=== PATIENT | female | born 1980 | race Caucasian/White ===

== ENCOUNTER 2017-11-07 22:49 | Emergency (ER) | payer MEDICAID ==
[~2017-11-07] VITALS: Ht 170.2 cm; Wt 100.0 kg
[~2017-11-07 22:49] MED LIST: FLUO20CA39 PO; HYDR-2514 PO; RISP1TAB47 PO
[2017-11-07 22:53] VITALS: BP 124/67
[2017-11-07] MEDS ORDERED: HYDROcodone/acetaminophen 5mg/325mg tablet PO STA (22:56)
[2017-11-07] MEDS ORDERED: TRAM50TA2 PO (23:35)
[2017-11-07] MEDS ORDERED: DICL100G15 TOP (23:35)
[2017-11-07] MEDS ORDERED: IBUP-1986 PO (23:35)
== END 2017-11-08 00:04 | disposition home or self-care (01) ==
LOC: ER 22:49
DX: M25.531 Pain in right wrist (principal); G89.29 Other chronic pain; Z88.8 Allergy status to other drugs, medicaments and biological substances; Z88.5 Allergy status to narcotic agent; Z79.899 Other long term (current) drug therapy; Z98.890 Other specified postprocedural states; W19.XXXA Unspecified fall, initial encounter; Y93.89 Activity, other specified; Y92.89 Other specified places as the place of occurrence of the external cause; Y99.8 Other external cause status
CPT/HCPCS: 29125; 73110; 99284

== ENCOUNTER 2018-04-30 21:45 | Emergency (ER) | payer MEDICAID, OTHER ==
[~2018-04-30] VITALS: Ht 170.2 cm; Wt 103.0 kg
[~2018-04-30 21:45] MED LIST changes: +DICL100G15 TOP; +HYDR-4383 PO; +IBUP-1986 PO; +NAPR-56 PO
[2018-04-30] MEDS ORDERED: dextrose ORAL solution 15 GM/59 ML bottle PO ONE (22:30)
[2018-04-30 23:17] VITALS: BP 120/71
[2018-04-30 23:30] LABS: BASOPHILS % (AUTO) 0.3 % (0-1); EOSINOPHILS # (AUTO) 0.1 X10'3 (0-0.9); EOSINOPHILS % (AUTO) 1.1 % (0-6); HEMATOCRIT 38.6 % (35.0-45.0); HEMOGLOBIN 13.1 g/dl (12.0-16.0); LYMPHOCYTES # (AUTO) 1.4 X10'3 (1.1-4.8); LYMPHOCYTES % (AUTO) 22.5 % (21-51); MEAN CORPUSCULAR HEMOGLOBIN 30.6 PG (27.0-31.0); MEAN CORPUSCULAR HGB CONC 33.9 % (33.0-36.5); MEAN CORPUSCULAR VOLUME 90.2 FL (78-98); MEAN PLATELET VOLUME 9.2 FL (7.4-10.4); MONOCYTES # (AUTO) 0.3 X10'3 (0-0.9); MONOCYTES % (AUTO) 4.3 % (2-12); NEUTROPHILS # (AUTO) 4.4 X10'3 (1.8-7.7); NEUTROPHILS % (AUTO) 71.8 % (42-75); PLATELET COUNT 176 X10'3 (140-440); RED BLOOD COUNT 4.28 X10'6 (4.20-5.60); RED CELL DISTRIBUTION WIDTH 14.4 % (11.5-14.5); WHITE BLOOD COUNT 6.2 X10'3 (4.5-11.0)
[2018-04-30 23:39] LABS: ALANINE AMINOTRANSFERASE 23 U/L (12-78); ALBUMIN 3.9 G/DL (3.4-5.0); ALBUMIN/GLOBULIN RATIO 1.2 (1.1-1.5); ALKALINE PHOSPHATASE 81 IU/L (46-116); ANION GAP 14 (8-16); ASPARTATE AMINO TRANSFERASE 12 U/L (10-37); BILIRUBIN,TOTAL 0.6 MG/DL (0.1-1.0); BLOOD UREA NITROGEN 13 MG/DL (7-18); BUN/CREATININE RATIO 13.7 (6.6-38.0); CHLORIDE 106 MMOL/L (99-107); CREATININE 0.95 MG/DL (0.40-0.90); GLUCOSE 137 MG/DL (70-104); POTASSIUM 3.2 MMOL/L (3.5-5.1); SODIUM 143 MMOL/L (135-145); TOTAL CARBON DIOXIDE 23.5 MMOL/L (24-32); TOTAL PROTEIN 7.1 G/DL (6.4-8.2); eGFR 65 ML/MIN
[2018-05-01] MEDS ORDERED: acetaminophen 325mg tablet PO ONE (00:20)
== END 2018-05-01 00:28 | disposition home or self-care (01) ==
LOC: ER 21:45
DX: E16.2 Hypoglycemia, unspecified (principal); K59.00 Constipation, unspecified; R19.7 Diarrhea, unspecified; F41.9 Anxiety disorder, unspecified; G89.29 Other chronic pain; Z90.49 Acquired absence of other specified parts of digestive tract; Z98.51 Tubal ligation status; Z88.5 Allergy status to narcotic agent; Z91.040 Latex allergy status; Z88.8 Allergy status to other drugs, medicaments and biological substances
CPT/HCPCS: 36415; 80053; 82948; 85025; 99284

== ENCOUNTER 2018-05-08 06:41 | Outpatient (CLI) | payer OTHER ==
[~2018-05-08 06:41] MED LIST changes: -NAPR-56 PO
[2018-05-08 14:05] LABS: ANION GAP 9 (8-16); BLOOD UREA NITROGEN 9 MG/DL (7-18); BUN/CREATININE RATIO 10.5 (6.6-38.0); CHLORIDE 105 MMOL/L (99-107); CREATININE 0.86 MG/DL (0.40-0.90); GLUCOSE 88 MG/DL (70-104); POTASSIUM 3.7 MMOL/L (3.5-5.1); SODIUM 141 MMOL/L (135-145); TOTAL CARBON DIOXIDE 27.5 MMOL/L (24-32); eGFR 73 ML/MIN
== END 2018-05-08 23:59 | disposition home or self-care (01) ==
LOC: LAB 06:41
PROVIDERS: ATTEND Nurse Practitioner Family
DX: R42 Dizziness and giddiness (principal); E16.2 Hypoglycemia, unspecified; F32.9 Major depressive disorder, single episode, unspecified; R41.3 Other amnesia; R25.1 Tremor, unspecified; R51 Headache; Z98.84 Bariatric surgery status
CPT/HCPCS: 36415; 80048; 82533; 83525; 84681

== ENCOUNTER 2018-05-13 15:30 | Outpatient (CLI) | payer OTHER | END 2018-05-13 23:59 | disposition home or self-care (01) | LOC: RAD 15:30 | PROVIDERS: ATTEND Nurse Practitioner Family | DX: R31.21 Asymptomatic microscopic hematuria (principal) | CPT/HCPCS: 76775 ==

== ENCOUNTER 2018-06-03 00:36 | Emergency (ER) | payer OTHER ==
[~2018-06-03] VITALS: Ht 170.2 cm; Wt 97.0 kg
[2018-06-03 01:28] LABS: BASOPHILS % (AUTO) 0.5 % (0-1); EOSINOPHILS # (AUTO) 0.1 X10'3 (0-0.9); EOSINOPHILS % (AUTO) 2.4 % (0-6); HEMATOCRIT 35.4 % (35.0-45.0); HEMOGLOBIN 12.2 g/dl (12.0-16.0); LYMPHOCYTES # (AUTO) 1.6 X10'3 (1.1-4.8); LYMPHOCYTES % (AUTO) 28.9 % (21-51); MEAN CORPUSCULAR HEMOGLOBIN 31.3 PG (27.0-31.0); MEAN CORPUSCULAR HGB CONC 34.4 % (33.0-36.5); MEAN CORPUSCULAR VOLUME 91.1 FL (78-98); MEAN PLATELET VOLUME 8.5 FL (7.4-10.4); MONOCYTES # (AUTO) 0.3 X10'3 (0-0.9); MONOCYTES % (AUTO) 4.7 % (2-12); NEUTROPHILS # (AUTO) 3.6 X10'3 (1.8-7.7); NEUTROPHILS % (AUTO) 63.5 % (42-75); PLATELET COUNT 192 X10'3 (140-440); RED BLOOD COUNT 3.89 X10'6 (4.20-5.60); RED CELL DISTRIBUTION WIDTH 14.3 % (11.5-14.5); WHITE BLOOD COUNT 5.6 X10'3 (4.5-11.0)
[2018-06-03 01:41] LABS: ALANINE AMINOTRANSFERASE 26 U/L (12-78); ALBUMIN 3.4 G/DL (3.4-5.0); ALBUMIN/GLOBULIN RATIO 1.1 (1.1-1.5); ALKALINE PHOSPHATASE 92 IU/L (46-116); ANION GAP 7 (8-16); ASPARTATE AMINO TRANSFERASE 13 U/L (10-37); BILIRUBIN,TOTAL 0.3 MG/DL (0.1-1.0); BLOOD UREA NITROGEN 13 MG/DL (7-18); BUN/CREATININE RATIO 12.7 (6.6-38.0); CALCIUM 8.8 MG/DL (8.5-10.1); CHLORIDE 106 MMOL/L (99-107); CREATININE 1.02 MG/DL (0.40-0.90); GLUCOSE 103 MG/DL (70-104); POTASSIUM 3.5 MMOL/L (3.5-5.1); SODIUM 142 MMOL/L (135-145); TOTAL CARBON DIOXIDE 29.5 MMOL/L (24-32); TOTAL PROTEIN 6.6 G/DL (6.4-8.2); eGFR 60 ML/MIN
[2018-06-03] MEDS ORDERED: NORE1TAB6 PO (01:41)
[2018-06-03 01:46] LABS: PARTIAL THROMBOPLASTIN TIME 29 SECONDS (22-32)
[2018-06-03] MEDS ORDERED: acetaminophen 325mg tablet PO ONE (01:55)
[2018-06-03 02:04] VITALS: BP 121/69
== END 2018-06-03 02:06 | disposition home or self-care (01) ==
LOC: ER 00:36
DX: N93.9 Abnormal uterine and vaginal bleeding, unspecified (principal); G89.29 Other chronic pain; F41.9 Anxiety disorder, unspecified; F17.210 Nicotine dependence, cigarettes, uncomplicated; Z98.51 Tubal ligation status; Z88.5 Allergy status to narcotic agent; Z90.49 Acquired absence of other specified parts of digestive tract; Z91.040 Latex allergy status
CPT/HCPCS: 36415; 80053; 85025; 85610; 85730; 86885; 86900; 86901; 99284

== ENCOUNTER 2018-06-08 21:09 | Emergency (ER) | payer OTHER ==
[~2018-06-08] VITALS: Ht 170.2 cm; Wt 101.0 kg
[~2018-06-08 21:09] MED LIST changes: +NORE1TAB6 PO
[2018-06-08 21:24] VITALS: BP 125/83
[2018-06-08] MEDS ORDERED: ONDA4TAB9 PO (22:12)
[2018-06-08] MEDS ORDERED: HYDR-3965 PO (22:12)
[2018-06-08] MEDS ORDERED: HYDROcodone/acetaminophen 10/325mg tab PO ONE (22:35)
[2018-06-08] MEDS ORDERED: ondansetron 4mg rapidly disintigrating tab PO ONE (22:35)
== END 2018-06-08 23:24 | disposition home or self-care (01) ==
LOC: ER 21:09
DX: S62.617A Displaced fracture of proximal phalanx of left little finger, initial encounter for closed fracture (principal); G89.29 Other chronic pain; Z88.8 Allergy status to other drugs, medicaments and biological substances; Z88.6 Allergy status to analgesic agent; Z79.899 Other long term (current) drug therapy; Z91.040 Latex allergy status; Z90.49 Acquired absence of other specified parts of digestive tract; Z98.890 Other specified postprocedural states; Z98.51 Tubal ligation status; Z98.84 Bariatric surgery status; W22.8XXA Striking against or struck by other objects, initial encounter; Y93.89 Activity, other specified; Y92.89 Other specified places as the place of occurrence of the external cause; Y99.8 Other external cause status
CPT/HCPCS: 29125; 73130; 99283

== ENCOUNTER 2018-06-13 09:21 | Emergency (ER) | payer OTHER ==
[~2018-06-13] VITALS: Ht 170.2 cm; Wt 101.6 kg
[~2018-06-13 09:21] MED LIST changes: +HYDR-3965 PO; +ONDA4TAB9 PO
[2018-06-13 09:56] VITALS: BP 124/77
[2018-06-13] MEDS ORDERED: ketorolac trometh inj. 60 MG/2 ML VIAL IM ONE (10:55)
[2018-06-13] MEDS ORDERED: HYDR-4383 PO (10:57)
== END 2018-06-13 12:11 | disposition home or self-care (01) ==
LOC: ER 09:22
DX: S62.617D Displaced fracture of proximal phalanx of left little finger, subsequent encounter for fracture with routine healing (principal); G89.29 Other chronic pain; Z90.49 Acquired absence of other specified parts of digestive tract; Z98.51 Tubal ligation status; Z91.040 Latex allergy status; Z88.5 Allergy status to narcotic agent; Z88.8 Allergy status to other drugs, medicaments and biological substances; Z79.899 Other long term (current) drug therapy; Z98.890 Other specified postprocedural states; W22.8XXD Striking against or struck by other objects, subsequent encounter
CPT/HCPCS: 29125; 96372; 99284; J1885

== ENCOUNTER 2018-06-17 09:48 | Outpatient (CLI) | payer OTHER, MEDICAID ==
[2018-06-17 09:47] VITALS: BP 128/71
== END 2018-06-17 16:13 | disposition home or self-care (01) ==
LOC: ORTHO 09:48
PROVIDERS: ATTEND Nurse Practitioner Family
DX: S62.647A Nondisplaced fracture of proximal phalanx of left little finger, initial encounter for closed fracture (principal); F17.210 Nicotine dependence, cigarettes, uncomplicated; Z91.040 Latex allergy status; Z91.048 Other nonmedicinal substance allergy status; Z88.5 Allergy status to narcotic agent; Z88.3 Allergy status to other anti-infective agents; W22.8XXA Striking against or struck by other objects, initial encounter; Y93.89 Activity, other specified; Y92.89 Other specified places as the place of occurrence of the external cause; Y99.8 Other external cause status
CPT/HCPCS: 73130; 99213

== ENCOUNTER 2018-06-23 14:23 | Outpatient (CLI) | payer OTHER, MEDICAID ==
[2018-06-23 14:22] VITALS: BP 119/72
== END 2018-06-23 15:00 | disposition home or self-care (01) ==
LOC: ORTHO 14:23
PROVIDERS: ATTEND Nurse Practitioner Family
DX: S62.647D Nondisplaced fracture of proximal phalanx of left little finger, subsequent encounter for fracture with routine healing (principal); F32.9 Major depressive disorder, single episode, unspecified; Z60.2 Problems related to living alone; Z91.040 Latex allergy status; Z88.5 Allergy status to narcotic agent; Z79.899 Other long term (current) drug therapy; Z88.3 Allergy status to other anti-infective agents; W22.8XXD Striking against or struck by other objects, subsequent encounter
CPT/HCPCS: 73130; 99213

== ENCOUNTER 2018-07-09 10:22 | Outpatient (CLI) | payer OTHER, MEDICAID ==
[2018-07-09 10:27] VITALS: BP 116/69
== END 2018-07-09 10:58 | disposition home or self-care (01) ==
LOC: ORTHO 10:22
PROVIDERS: ATTEND Nurse Practitioner Family
DX: S62.647 Nondisplaced fracture of proximal phalanx of left little finger (principal); F32.9 Major depressive disorder, single episode, unspecified; Z60.2 Problems related to living alone; Z91.040 Latex allergy status; Z88.5 Allergy status to narcotic agent; Z88.8 Allergy status to other drugs, medicaments and biological substances; Z79.899 Other long term (current) drug therapy; X58.XXXD Exposure to other specified factors, subsequent encounter
CPT/HCPCS: 73130; 99213

== ENCOUNTER 2018-07-23 10:06 | Outpatient (CLI) | payer OTHER ==
[~2018-07-23 10:06] MED LIST changes: -HYDR-3965 PO; -ONDA4TAB9 PO
[2018-07-23 10:26] VITALS: BP 113/72
== END 2018-07-23 11:03 | disposition home or self-care (01) ==
LOC: ORTHO 10:06
PROVIDERS: ATTEND Nurse Practitioner Family
DX: S62.647G Nondisplaced fracture of proximal phalanx of left little finger, subsequent encounter for fracture with delayed healing (principal); F32.9 Major depressive disorder, single episode, unspecified; Z60.2 Problems related to living alone; Z91.040 Latex allergy status; Z88.5 Allergy status to narcotic agent; Z88.8 Allergy status to other drugs, medicaments and biological substances; Z79.899 Other long term (current) drug therapy; X58.XXXD Exposure to other specified factors, subsequent encounter
CPT/HCPCS: 73140; 99213

== ENCOUNTER 2018-08-06 10:05 | Outpatient (CLI) | payer OTHER ==
[2018-08-06 10:01] VITALS: BP 127/69
== END 2018-08-06 11:29 | disposition home or self-care (01) ==
LOC: ORTHO 10:05
PROVIDERS: ATTEND Nurse Practitioner Family
DX: S62.647G Nondisplaced fracture of proximal phalanx of left little finger, subsequent encounter for fracture with delayed healing (principal); W31.89XD Contact with other specified machinery, subsequent encounter; Y92.014 Private driveway to single-family (private) house as the place of occurrence of the external cause
CPT/HCPCS: 73130; 99213

== ENCOUNTER 2018-08-20 09:10 | Outpatient (CLI) | payer OTHER ==
[2018-08-20 09:06] VITALS: BP 117/70
== END 2018-08-20 09:55 | disposition home or self-care (01) ==
LOC: ORTHO 09:10
PROVIDERS: ATTEND Nurse Practitioner Family
DX: S62.647 Nondisplaced fracture of proximal phalanx of left little finger (principal); Z91.040 Latex allergy status; Z88.5 Allergy status to narcotic agent; Z91.048 Other nonmedicinal substance allergy status; W31.89XD Contact with other specified machinery, subsequent encounter; Y92.014 Private driveway to single-family (private) house as the place of occurrence of the external cause
CPT/HCPCS: 73130; G0463; 99213

== ENCOUNTER 2018-09-29 09:03 | Outpatient (CLI) | payer OTHER ==
[2018-09-29 08:56] VITALS: BP 114/70
== END 2018-09-29 09:51 | disposition home or self-care (01) ==
LOC: ORTHO 09:03
PROVIDERS: ATTEND Nurse Practitioner Family
DX: S62.647G Nondisplaced fracture of proximal phalanx of left little finger, subsequent encounter for fracture with delayed healing (principal); X58.XXXD Exposure to other specified factors, subsequent encounter
CPT/HCPCS: 73130; 99213

== ENCOUNTER 2018-10-21 14:58 | Outpatient (CLI) | payer OTHER | END 2018-10-21 15:42 | disposition home or self-care (01) | LOC: ORTHO 14:58 | PROVIDERS: ATTEND Orthopaedic Surgery | DX: S62.617D Displaced fracture of proximal phalanx of left little finger, subsequent encounter for fracture with routine healing (principal); M85.842 Other specified disorders of bone density and structure, left hand; Z91.040 Latex allergy status; Z88.5 Allergy status to narcotic agent; Z88.8 Allergy status to other drugs, medicaments and biological substances; X58.XXXD Exposure to other specified factors, subsequent encounter | CPT/HCPCS: 73130; 99213 ==

== ENCOUNTER 2018-12-03 08:26 | Outpatient (CLI) | payer OTHER ==
[2018-12-03 12:55] VITALS: BP 124/71
== END 2018-12-03 12:59 | disposition home or self-care (01) ==
LOC: ORTHO 08:26
PROVIDERS: ATTEND Orthopaedic Surgery
DX: S62.647D Nondisplaced fracture of proximal phalanx of left little finger, subsequent encounter for fracture with routine healing (principal); X58.XXXD Exposure to other specified factors, subsequent encounter
CPT/HCPCS: 73140; 99213

== ENCOUNTER 2018-12-24 11:19 | Outpatient (CLI) | payer OTHER | END 2018-12-24 11:49 | disposition home or self-care (01) | LOC: ORTHO 11:19 | PROVIDERS: ATTEND Orthopaedic Surgery | DX: S62.617D Displaced fracture of proximal phalanx of left little finger, subsequent encounter for fracture with routine healing (principal); X58.XXXD Exposure to other specified factors, subsequent encounter | CPT/HCPCS: 73130; G0463 ==

== ENCOUNTER 2019-01-26 14:42 | Outpatient (CLI) | payer OTHER ==
[2019-01-26 14:41] VITALS: BP 96/53
== END 2019-01-26 15:35 | disposition home or self-care (01) ==
LOC: ORTHO 14:42
PROVIDERS: ATTEND Orthopaedic Surgery
DX: S62.617D Displaced fracture of proximal phalanx of left little finger, subsequent encounter for fracture with routine healing (principal); X58.XXXD Exposure to other specified factors, subsequent encounter
CPT/HCPCS: 73130; G0463

== ENCOUNTER 2019-02-04 15:39 | Outpatient (CLI) | payer OTHER ==
[~2019-02-04 15:39] MED LIST changes: +NORE-126 PO; -NORE1TAB6 PO
== END 2019-02-04 23:59 | disposition home or self-care (01) ==
LOC: RAD 15:39
PROVIDERS: ATTEND Obstetrics & Gynecology
DX: N83.02 Follicular cyst of left ovary (principal); N83.01 Follicular cyst of right ovary; Z87.891 Personal history of nicotine dependence
CPT/HCPCS: 76830; 76856

== ENCOUNTER 2019-02-18 07:15 | Observation (INO) | payer OTHER ==
[2019-02-17 10:40] LABS: CLARITY,URINE SLIGHTLY CLOUDY (Clear); COLOR,URINE YELLOW (Yellow); GLUCOSE, URINE NEGATIVE (Neg); KETONES,URINE NEGATIVE (Neg); LEUKOCYTE ESTERASE ,URINE NEGATIVE (Neg); NITRITES, URINE NEGATIVE (Neg); OCCULT BLOOD,URINE TRACE-INTACT (Neg); PH,URINE 6.5 (4.8-8.0); PROTEIN,URINE NEGATIVE (Neg); UROBILINOGEN,URINE 0.2 E.U/dL (0.2-1.0)
[2019-02-17 10:50] LABS: MUCUS STRANDS FEW /LPF (Neg); SQUAMOUS EPITHELIAL CELL,UR FEW /LPF (FEW); UA COLLECTION TYPE CLN CATCH MIDSTREAM
[2019-02-17 10:51] LABS: BACTERIA,URINE FEW /HPF (Neg); RBC,URINE 0-2 /HPF (0-2); WBC,URINE 0-4 /HPF (0-4)
[2019-02-17 10:52] LABS: BASOPHILS % (AUTO) 0.6 % (0-1); EOSINOPHILS # (AUTO) 0.1 X10'3 (0-0.9); EOSINOPHILS % (AUTO) 2.3 % (0-6); LYMPHOCYTES # (AUTO) 1.5 X10'3 (1.1-4.8); LYMPHOCYTES % (AUTO) 23.6 % (21-51); MEAN CORPUSCULAR HGB CONC 32.7 g/dL (33.0-36.5); MEAN CORPUSCULAR VOLUME 88.8 FL (78-98); MEAN PLATELET VOLUME 8.9 FL (7.4-10.4); MONOCYTES # (AUTO) 0.4 X10'3 (0-0.9); MONOCYTES % (AUTO) 6.3 % (2-12); NEUTROPHILS # (AUTO) 4.1 X10'3 (1.8-7.7); NEUTROPHILS % (AUTO) 67.2 % (42-75); PRE OP HEMATOCRIT 35.2 % (35.0-45.0); PRE OP HEMOGLOBIN 11.5 g/dL (12.0-16.0); PRE OP PLATELET COUNT 207 X10'3 (140-440); RED BLOOD COUNT 3.97 X10'6 (4.20-5.60)
[2019-02-17 10:55] LABS: ALBUMIN 3.5 G/DL (3.4-5.0); ALKALINE PHOSPHATASE 86 IU/L (46-116); BLOOD UREA NITROGEN 13 MG/DL (7-18); BUN/CREATININE RATIO 14.9 (6.6-38.0); CALCIUM 9.4 MG/DL (8.5-10.1); CHLORIDE 109 MMOL/L (99-107); CREATININE 0.87 MG/DL (0.40-0.90); PRE OP ALT 21 U/L (30-65); PRE OP ANION GAP 8 (8-16); PRE OP AST 10 U/L (10-37); PRE OP BILIRUB, TOTAL 0.3 MG/DL (0.0-1.0); PRE OP GLUCOSE 91 MG/DL (70-104); PRE OP SODIUM 144 MMOL/L (135-145); TOTAL CARBON DIOXIDE 27.2 MMOL/L (24-32); TOTAL PROTEIN 7.1 G/DL (6.4-8.2); eGFR 72 ML/MIN
[2019-02-17 10:56] LABS: PRE OP PROTIME 9.8 SECONDS (9.0-12.0)
[~2019-02-18] VITALS: Ht 170.2 cm; Wt 104.8 kg
[2019-02-18] VITALS (21 sets, daily range): BP systolic 94–124; BP diastolic 53–79
[~2019-02-18 07:15] MED LIST changes: +BUPIVAcaine/PF 2.5 mg/ml (0.25%) 30ml vial ONE; +CHOL100024 PO; +CYAN500T63 PO; -DICL100G15 TOP; +FERR325T34 PO; -FLUO20CA39 PO; -HYDR-2514 PO; -HYDR-4383 PO; -IBUP-1986 PO; +LORA-269 PO; -NORE-126 PO; +PRAM0.754 PO; -RISP1TAB47 PO; +SERT100T10 PO; +TRAZ-219 PO; +[UNRECOGNIZED DRUG - CODE] PO; +famotidine 20mg tablet PO ONE; +tranexamic acid inj. 1,000 MG in normal saline 100 ML IV ONE
[2019-02-18] MEDS: ringers solution, lacted 1,000 ML IV SCH ×3 (07:34→17:31)
[2019-02-18] MEDS ORDERED: rocuronium 10mg/ml inj IV ONE ×2 (08:18→10:08)
[2019-02-18] MEDS ORDERED: midazolam 2 mg/2 ml injection ONE (08:18)
[2019-02-18] MEDS ORDERED: propofol inj 20 ML IV ONE (08:18)
[2019-02-18] MEDS ORDERED: fentaNYL /PF 50mcg/ml 5ml ampule ONE (08:18)
[2019-02-18] MEDS ORDERED: sevoflurane 250ml liquid IH ONE (08:28)
[2019-02-18] MEDS ORDERED: ringers solution, lacted 1,000 ML IV SCH (09:38)
[2019-02-18] MEDS ORDERED: proCHLORperazine 10 MG/2 ml inj IV PRN (09:40)
[2019-02-18] MEDS ORDERED: meperidine/PF 25mg/ml syringe IV PRN ×2 (09:40)
[2019-02-18] MEDS ORDERED: morphine 4 MG/ML inj SYRINge IV PRN ×2 (09:40)
[2019-02-18] MEDS ORDERED: ondansetron/PF 4mg/2ml inj IV PRN ×2 (09:40→13:15)
[2019-02-18] MEDS ORDERED: dexamethasone sod phosphate 4mg/ml inj. ONE (10:08)
[2019-02-18] MEDS ORDERED: ondansetron/PF 4mg/2ml inj ONE (12:01)
[2019-02-18] MEDS ORDERED: acetaminophen 1,000mg/100ml IV 100 ML IV ONE (12:02)
[2019-02-18] MEDS ORDERED: BUPIVAcaine/PF 2.5mg/ml (0.25%) 10ml vial ONE (12:18)
[2019-02-18] MEDS ORDERED: neostigmine methylsulfate 1 MG/ML 10ml vial ONE (12:22)
[2019-02-18] MEDS ORDERED: glycopyrrolate 0.2mg/ml inj ONE (12:22)
--- NOTE | 2019-02-18 12:44 | NUR ---
Received from OR via , accompanied by Anesthesiologist DR BROTHERS and report given by Anesthesiolgist. AWAKENS TO VOICE. VITALS STABLE. DRESSINGS DI. STATES MODRATE ABD CRAMPING. ABD SOFT.
[2019-02-18] MEDS: meperidine/PF 25mg/ml syringe IV PRN ×2 (12:51→13:01)
[2019-02-18] MEDS ORDERED: ketorolac trometh. 30mg/ml inj. IV ONE (13:05)
[2019-02-18] MEDS ORDERED: diphenhydrAMINE 50 mg/ml inj IV PRN (13:15)
[2019-02-18] MEDS ORDERED: LORazepam 2 mg/ml vial IV PRN (13:15)
[2019-02-18] MEDS ORDERED: magnesium hydroxide 30ml (MOM) UD suspension PO PRN (13:15)
[2019-02-18] MEDS ORDERED: mag hydrox/Alum hydrox/simeth 30ml oral suspension PO PRN (13:15)
[2019-02-18] MEDS ORDERED: normal saline 500ml IV soln 500 ML IV PRN (13:15)
[2019-02-18] MEDS ORDERED: metoclopramide 5 mg/ml inj IV PRN (13:15)
--- NOTE | 2019-02-18 14:44 | NUR ---
Report called to receiving nurse. Transferred via BED Belongings . Special Issues communicated to receiving nurse. AWAKE AND ORIENTED. VITALS STABLE. DRESSINGS DI. STATES PAIN IMPROVING. TO SURGICAL RM 347A AT THIS TIME.
[2019-02-18] MEDS: ibuprofen 200mg tablet PO SCH ×2 (16:09→20:00)
[2019-02-18] MEDS: HYDROcodone/acetaminophen 10/325mg tab PO PRN ×2 (17:25→23:11)
[2019-02-18] MEDS: simethicone 80mg chew tab PO SCH (17:31)
--- NOTE | 2019-02-18 18:15 | NUR ---
Patient in room [facility]. I have received report from ALYSSIA Briceño and had the opportunity to ask questions and assume patient care. Addendum: 02/18/19 at 2305 by Sohan Miner RN Amended: Links added.
--- NOTE | 2019-02-18 18:18 | NUR ---
Problems reprioritized. Patient report given, questions answered & plan of care reviewed with SASKIA Valentine RN. Addendum: 02/18/19 at 1820 by Pam Wilson RN DISREGARD NOTE
--- NOTE | 2019-02-18 18:20 | NUR ---
Problems reprioritized. Patient report given, questions answered & plan of care reviewed with MARITA CADE.
[2019-02-18] MEDS: ketorolac tromethamine 15mg/ml inj. IV PRN (19:46)
[2019-02-18] MEDS ORDERED: LORazepam 1 MG tablet PO PRN (21:05)
[2019-02-18] MEDS: morphine 4 MG/ML inj SYRINge IV PRN (21:38)
[2019-02-18] MEDS: pramipexole 0.25mg tablet PO SCH (23:09)
[2019-02-18] MEDS: traZODone 50mg tablet PO SCH (23:10)
[2019-02-19] VITALS: BP 114/62
--- NOTE | 2019-02-19 00:40 | NUR ---
PT VOIDED IN BSC, POST VOID RESIDUAL 400ML PER BLADDER SCAN. PT WAS VOIDING WITHOUT DIFFICULTY, BUT STATES STARTED TO FEEL MO9RE PRESSURE LAST FEW HOURS. SINGER CATH 16FR PLACED PER ORDERS. PT INSTRUCTED ON CARE, BUT DROWSY AT THIS TIME, WILL NEED F/U EDUCATION. Addendum: 02/19/19 at 0057 by Sohan Miner RN Amended: Links added.
[2019-02-19] MEDS: ibuprofen 200mg tablet PO SCH ×4 (02:00→19:05)
[2019-02-19] MEDS: ketorolac tromethamine 15mg/ml inj. IV PRN (03:04)
[2019-02-19] MEDS: morphine 4 MG/ML inj SYRINge IV PRN ×2 (03:49→10:43)
[2019-02-19] MEDS: HYDROcodone/acetaminophen 10/325mg tab PO PRN ×4 (04:18→21:35)
[2019-02-19 05:16] LABS: BASOPHILS % (AUTO) 0.2 % (0-1); EOSINOPHILS % (AUTO) 0.1 % (0-6); HEMATOCRIT 31.8 % (35.0-45.0); HEMOGLOBIN 10.5 g/dl (12.0-16.0); LYMPHOCYTES # (AUTO) 0.9 X10'3 (1.1-4.8); LYMPHOCYTES % (AUTO) 8.8 % (21-51); MEAN CORPUSCULAR HEMOGLOBIN 29.4 PG (27.0-31.0); MEAN CORPUSCULAR HGB CONC 33.1 g/dL (33.0-36.5); MEAN CORPUSCULAR VOLUME 88.9 FL (78-98); MEAN PLATELET VOLUME 9.1 FL (7.4-10.4); MONOCYTES # (AUTO) 0.6 X10'3 (0-0.9); MONOCYTES % (AUTO) 5.2 % (2-12); NEUTROPHILS # (AUTO) 9.1 X10'3 (1.8-7.7); NEUTROPHILS % (AUTO) 85.7 % (42-75); PLATELET COUNT 172 X10'3 (140-440); RED BLOOD COUNT 3.57 X10'6 (4.20-5.60); WHITE BLOOD COUNT 10.6 X10'3 (4.5-11.0)
[2019-02-19] MEDS ORDERED: cefazolin/dext.iso 2gm/100 ML IV ONE (05:30)
[2019-02-19 05:31] LABS: ALANINE AMINOTRANSFERASE 17 U/L (12-78); ALKALINE PHOSPHATASE 70 IU/L (46-116); ANION GAP 9 (8-16); ASPARTATE AMINO TRANSFERASE 11 U/L (10-37); BILIRUBIN,TOTAL 0.3 MG/DL (0.1-1.0); BLOOD UREA NITROGEN 8 MG/DL (7-18); BUN/CREATININE RATIO 8.5 (6.6-38.0); CALCIUM 8.7 MG/DL (8.5-10.1); CHLORIDE 108 MMOL/L (99-107); CREATININE 0.94 MG/DL (0.40-0.90); GLUCOSE 110 MG/DL (70-104); POTASSIUM 4.1 MMOL/L (3.5-5.1); SODIUM 142 MMOL/L (135-145); TOTAL CARBON DIOXIDE 24.9 MMOL/L (24-32); TOTAL PROTEIN 6.1 G/DL (6.4-8.2); eGFR 66 ML/MIN
--- NOTE | 2019-02-19 06:29 | NUR ---
Patient in room [facility]. I have received report from ALYSSIA Cartagena and had the opportunity to ask questions and assume patient care.
--- NOTE | 2019-02-19 06:35 | NUR ---
Problems reprioritized. Patient report given, questions answered & plan of care reviewed with ALYSSIA Murillo. Addendum: 02/19/19 at 0636 by Sohan Miner RN Amended: Links added.
[2019-02-19 07:00] VITALS: BP 98/44
[2019-02-19] MEDS: ferrous sulfate 325mg tablet PO SCH ×2 (08:44→19:05)
[2019-02-19] MEDS: cyanocobalamin 500mcg tablet PO SCH (08:45)
[2019-02-19] MEDS: simethicone 80mg chew tab PO SCH ×3 (08:45→17:03)
[2019-02-19] MEDS: sertraline 50mg tablet PO SCH (08:46)
[2019-02-19] MEDS: vitamin D (cholecalciferol) 1,000 unit tablet PO SCH (08:46)
[2019-02-19] MEDS: ascorbic acid 500mg tablet PO SCH (10:43)
[2019-02-19 11:00] VITALS: BP 99/46
[2019-02-19] MEDS ORDERED: oxyCODONE SR 10mg (sust. release) tab PO PRN (14:20)
[2019-02-19 18:00] VITALS: BP 97/52
--- NOTE | 2019-02-19 18:30 | NUR ---
Patient in room [facility]. I have received report from Lidia CADE and had the opportunity to ask questions and assume patient care.
--- NOTE | 2019-02-19 18:45 | NUR ---
Problems reprioritized. Patient report given, questions answered & plan of care reviewed with ALYSSIA Moseley.
[2019-02-19] MEDS: oxyCODONE SR 10mg (sust. release) tab PO SCH (19:06)
[2019-02-19] MEDS: pramipexole 0.25mg tablet PO SCH (21:33)
[2019-02-19] MEDS: traZODone 50mg tablet PO SCH (21:33)
[2019-02-20] VITALS: BP 97/51
--- NOTE | 2019-02-20 00:06 | NUR ---
Problems reprioritized. Patient report given, questions answered & plan of care reviewed with Deneen CADE.
[2019-02-20] MEDS: ibuprofen 200mg tablet PO SCH ×2 (02:00→07:52)
[2019-02-20] MEDS: HYDROcodone/acetaminophen 10/325mg tab PO PRN (04:53)
--- NOTE | 2019-02-20 06:09 | NUR ---
Problems reprioritized. Patient report given, questions answered & plan of care reviewed with Lidia CADE. Addendum: 02/20/19 at 0610 by Deneen Giraldo RN Amended: Links added.
--- NOTE | 2019-02-20 06:24 | NUR ---
Patient in room [facility]. I have received report from ALYSSIA Brothers and had the opportunity to ask questions and assume patient care.
[2019-02-20 07:00] VITALS: BP 116/41
[2019-02-20] MEDS: cyanocobalamin 500mcg tablet PO SCH (08:25)
[2019-02-20] MEDS: sertraline 50mg tablet PO SCH (08:25)
[2019-02-20] MEDS: ascorbic acid 500mg tablet PO SCH (08:25)
[2019-02-20] MEDS: oxyCODONE SR 10mg (sust. release) tab PO SCH (08:26)
[2019-02-20] MEDS: simethicone 80mg chew tab PO SCH (08:26)
[2019-02-20] MEDS: ferrous sulfate 325mg tablet PO SCH (08:26)
[2019-02-20] MEDS: vitamin D (cholecalciferol) 1,000 unit tablet PO SCH (08:26)
[2019-02-20 11:00] VITALS: BP 111/49
--- NOTE | 2019-02-20 12:33 | NUR ---
Patient discharged and taken from unit via wheelchair with x1 staff. Patient alert, oriented and in no apparent distress at time of discharge. Patient PIV removed with cannula intact. Patient took all belongings with her including discharge instructions. Patient stated an understanding of the instructions and states that she will follow up with Dr. Wong in 1-2 weeks. Patient stated that her ear was a little numb and having a weird hearing issue. Dr. Wong was called regarding this issue and said that this is something she can address during their follow up appointment. Patient agreed and felt comfortable for discharge.
== END 2019-02-20 12:30 | disposition home or self-care (01) ==
LOC: PAS 07:15 → SUR 3N 13:12
PROVIDERS: ADMIT Obstetrics & Gynecology; ATTEND Obstetrics & Gynecology
PROC: 0UT24ZZ Resection of Bilateral Ovaries, Percutaneous Endoscopic Approach (ICD-10-PCS; 2019-02-18)
PROC: 0UT74ZZ Resection of Bilateral Fallopian Tubes, Percutaneous Endoscopic Approach (ICD-10-PCS; 2019-02-18)
PROC: 8E0W4CZ Robotic Assisted Procedure of Trunk Region, Percutaneous Endoscopic Approach (ICD-10-PCS; 2019-02-18)
PROC: 0UBMXZZ Excision of Vulva, External Approach (ICD-10-PCS; 2019-02-18)
PROC: 0T9B00Z Drainage of Bladder with Drainage Device, Open Approach (ICD-10-PCS; 2019-02-18)
PROC: 0DNU4ZZ Release Omentum, Percutaneous Endoscopic Approach (ICD-10-PCS; 2019-02-18)
PROC: 0UT94ZZ Resection of Uterus, Percutaneous Endoscopic Approach (ICD-10-PCS; principal; 2019-02-18 08:26)
DX: N92.1 Excessive and frequent menstruation with irregular cycle (principal); N90.60 Unspecified hypertrophy of vulva; Z80.41 Family history of malignant neoplasm of ovary; R10.2 Pelvic and perineal pain; D64.9 Anemia, unspecified; Z01.812 Encounter for preprocedural laboratory examination; Z83.3 Family history of diabetes mellitus
CPT/HCPCS: 36415; 49329; 51040; 56620; 58571; 80053; 81001; 82948; 85025; 85610; 85730; 86885; 86900; 86901; 86920; 93005; 96374; 96375; 96376; C1758; G0378; J0131; J1100; J1885; J2060; J2175; J2250; J2270; J2405; J2704; J2710; J3010; J3490; J7030; J7120; S2900; A4355; A4618; A7000

== ENCOUNTER 2019-03-26 08:15 | Outpatient (CLI) | payer OTHER, MEDICAID ==
[~2019-03-26 08:15] MED LIST changes: -BUPIVAcaine/PF 2.5 mg/ml (0.25%) 30ml vial ONE; -famotidine 20mg tablet PO ONE; -tranexamic acid inj. 1,000 MG in normal saline 100 ML IV ONE
== END 2019-03-26 23:59 | disposition home or self-care (01) ==
LOC: VAS 08:15
PROVIDERS: ATTEND Family Medicine
DX: I65.23 Occlusion and stenosis of bilateral carotid arteries (principal); Z87.891 Personal history of nicotine dependence
CPT/HCPCS: 93880

== ENCOUNTER 2019-03-30 19:05 | Emergency (ER) | payer OTHER, MEDICAID ==
--- NOTE | 2019-03-30 23:20 | NUR ---
PT MOVED FROM FAST TRACK OVER TO ROOM [address] GIRON THAT PT HAS BEEN WAITING AND WOULD LIKE TO BE SEEN . SHE IS AN EMPLOYEE
--- NOTE | 2019-03-30 23:58 | NUR ---
PT FRUSTRATED THAT SHE STILL HASNT BEEN SEEN . ENCOURAGED PT TO BE PATIENT TO AWAIT MD .
--- NOTE | 2019-03-31 00:46 | NUR ---
PT SEEN BY DR IGRON AT BEDSIDE TO DO AN EXTERNAL VAGINAL EXAM. PT ADVISED THAT ALL SUTURES INTACT . POC UPDATED . PT TO APPLY GUAZE AND KOTEX TO AREA AND ICE NEEDED
[2019-03-31] MEDS ORDERED: acetaminophen 325mg tablet PO ONE (01:00)
[2019-03-31 01:14] VITALS: BP 115/69
== END 2019-03-31 01:17 | disposition home or self-care (01) ==
LOC: ER 19:06
DX: T81.89XA Other complications of procedures, not elsewhere classified, initial encounter (principal); N99.821 Postprocedural hemorrhage of a genitourinary system organ or structure following other procedure; G89.29 Other chronic pain; F41.9 Anxiety disorder, unspecified; F32.9 Major depressive disorder, single episode, unspecified; Z90.49 Acquired absence of other specified parts of digestive tract; Z98.51 Tubal ligation status; Z98.890 Other specified postprocedural states; Z91.040 Latex allergy status; Z88.5 Allergy status to narcotic agent; Z79.899 Other long term (current) drug therapy; Y84.8 Other medical procedures as the cause of abnormal reaction of the patient, or of later complication, without mention of misadventure at the time of the procedure; Y92.89 Other specified places as the place of occurrence of the external cause
CPT/HCPCS: 99283

== ENCOUNTER 2019-04-02 08:40 | Outpatient (CLI) | payer OTHER, MEDICAID | END 2019-04-02 23:59 | disposition home or self-care (01) | LOC: RAD 08:40 | PROVIDERS: ATTEND Family Medicine | DX: M51.36 Other intervertebral disc degeneration, lumbar region (principal); M25.78 Osteophyte, vertebrae; Z87.891 Personal history of nicotine dependence | CPT/HCPCS: 72100; 72148 ==

== ENCOUNTER 2019-04-13 12:09 | Outpatient (CLI) | payer OTHER, MEDICAID | END 2019-04-13 23:59 | disposition home or self-care (01) | LOC: CARD DIAG 12:09 | PROVIDERS: ATTEND Internal Medicine Cardiovascular Disease | DX: R55 Syncope and collapse (principal); M25.571 Pain in right ankle and joints of right foot | CPT/HCPCS: 73610; 93306 ==

== ENCOUNTER 2019-04-14 08:48 | Outpatient (CLI) | payer OTHER, MEDICAID | END 2019-04-14 23:59 | disposition home or self-care (01) | LOC: VAS 08:48 | PROVIDERS: ATTEND Obstetrics & Gynecology | DX: M79.604 Pain in right leg (principal); Z87.891 Personal history of nicotine dependence | CPT/HCPCS: 93970 ==

== ENCOUNTER 2019-04-29 08:00 | Outpatient (CLI) | payer OTHER, MEDICAID ==
[2019-04-29] VITALS (21 sets, daily range): BP systolic 100–125; BP diastolic 58–80
== END 2019-04-29 23:59 | disposition home or self-care (01) ==
LOC: CARD DIAG 08:00
PROVIDERS: ATTEND Internal Medicine Cardiovascular Disease
DX: R42 Dizziness and giddiness (principal)
CPT/HCPCS: 93660

== ENCOUNTER 2019-05-05 07:59 | Emergency (ER) | payer OTHER, MEDICAID ==
[~2019-05-05] VITALS: Ht 170.2 cm; Wt 104.5 kg
[2019-05-05] MEDS ORDERED: acetaminophen 325mg tablet PO ONE (08:50)
[2019-05-05] MEDS ORDERED: TETanus/Pertussis (Acell)/Diphther VAC/PF (Tdap-Adult) 0.5ml syringe IM ONE (08:50)
[2019-05-05 09:10] VITALS: BP 121/71
== END 2019-05-05 09:12 | disposition home or self-care (01) ==
LOC: ER 08:00
DX: S60.041A Contusion of right ring finger without damage to nail, initial encounter (principal); G89.29 Other chronic pain; F41.9 Anxiety disorder, unspecified; F32.9 Major depressive disorder, single episode, unspecified; Z90.49 Acquired absence of other specified parts of digestive tract; Z98.890 Other specified postprocedural states; Z98.51 Tubal ligation status; Z91.040 Latex allergy status; Z88.5 Allergy status to narcotic agent; Z88.8 Allergy status to other drugs, medicaments and biological substances; Z79.899 Other long term (current) drug therapy; W22.8XXA Striking against or struck by other objects, initial encounter; Y93.89 Activity, other specified; Y92.89 Other specified places as the place of occurrence of the external cause; Y99.8 Other external cause status
CPT/HCPCS: 11740; 29280; 73140; 90471; 99283

== ENCOUNTER 2019-05-25 06:18 | Day surgery (SDC) | payer OTHER, MEDICAID ==
[~2019-05-25] VITALS: Ht 170.2 cm; Wt 100.0 kg
[2019-05-25 06:25] VITALS: BP 127/90
[2019-05-25] MEDS ORDERED: ESTR1PAT32 TD (06:39)
[2019-05-25] MEDS ORDERED: SERT50TA10 PO (06:40)
[2019-05-25] MEDS ORDERED: MIDAZolam 5mg/5ml vial ONE (07:07)
[2019-05-25] MEDS ORDERED: fentaNYL/PF 50MCG/1 ML 2ML syringe ONE ×2 (07:07→08:15)
[2019-05-25] MEDS ORDERED: LIDOcaine Viscous 15ml cup ONE (07:49)
[2019-05-25 08:45] VITALS: BP 107/70
[2019-05-25 08:55] VITALS: BP 111/69
[2019-05-25 09:05] VITALS: BP 107/59
[2019-05-25 09:15] VITALS: BP 106/67
== END 2019-05-25 09:45 | disposition home or self-care (01) ==
LOC: GI LAB 06:18
PROVIDERS: ATTEND Internal Medicine Gastroenterology
DX: K52.9 Noninfective gastroenteritis and colitis, unspecified (principal); R10.84 Generalized abdominal pain; Z90.3 Acquired absence of stomach [part of]
CPT/HCPCS: 43239; 45380; 99152; 99153; J2250; J3010; J7040; A4620

== ENCOUNTER 2019-07-05 08:37 | Day surgery (SDC) | payer OTHER, MEDICAID ==
[2019-07-01 11:02] LABS: BASOPHILS % (AUTO) 0.3 % (0-1); EOSINOPHILS # (AUTO) 0.1 X10'3 (0-0.9); EOSINOPHILS % (AUTO) 1.4 % (0-6); LYMPHOCYTES # (AUTO) 1.5 X10'3 (1.1-4.8); LYMPHOCYTES % (AUTO) 18.5 % (21-51); MEAN CORPUSCULAR HEMOGLOBIN 29.8 PG (27.0-31.0); MEAN CORPUSCULAR HGB CONC 33.4 g/dL (33.0-36.5); MEAN CORPUSCULAR VOLUME 89.3 FL (78-98); MEAN PLATELET VOLUME 8.2 FL (7.4-10.4); MONOCYTES # (AUTO) 0.4 X10'3 (0-0.9); MONOCYTES % (AUTO) 4.9 % (2-12); NEUTROPHILS # (AUTO) 6.2 X10'3 (1.8-7.7); NEUTROPHILS % (AUTO) 74.9 % (42-75); PRE OP HEMATOCRIT 39.9 % (35.0-45.0); PRE OP HEMOGLOBIN 13.3 g/dL (12.0-16.0); PRE OP PLATELET COUNT 201 X10'3 (140-440); RED BLOOD COUNT 4.47 X10'6 (4.20-5.60); RED CELL DISTRIBUTION WIDTH 16.2 % (11.5-14.5)
[2019-07-01 11:11] LABS: ALBUMIN/GLOBULIN RATIO 1.1 (1.1-1.5); ALKALINE PHOSPHATASE 108 IU/L (46-116); BLOOD UREA NITROGEN 10 MG/DL (7-18); BUN/CREATININE RATIO 11.1 (6.6-38.0); CALCIUM 9.4 MG/DL (8.5-10.1); CHLORIDE 105 MMOL/L (99-107); PRE OP ALT 17 U/L (30-65); PRE OP ANION GAP 9 (8-16); PRE OP AST 11 U/L (10-37); PRE OP BILIRUB, TOTAL 0.2 MG/DL (0.0-1.0); PRE OP GLUCOSE 93 MG/DL (70-104); PRE OP POTASSIUM 4.3 MMOL/L (3.4-5.1); PRE OP SODIUM 143 MMOL/L (135-145); TOTAL CARBON DIOXIDE 28.9 MMOL/L (24-32); TOTAL PROTEIN 7.6 G/DL (6.4-8.2); eGFR 69 ML/MIN
[2019-07-05] VITALS (10 sets, daily range): BP systolic 97–132; BP diastolic 65–71
[~2019-07-05] VITALS: Ht 170.2 cm; Wt 97.9 kg
[~2019-07-05 08:37] MED LIST changes: +ESTR1PAT32 SQ; -FERR325T34 PO; +SERT50TA10 PO; +cefazolin/dext.iso 2gm/100ml 100 ML IV ONE; +famotidine 10mg tablet PO ONE; +ringers solution, lacted 1,000 ML IV SCH
[2019-07-05] MEDS ORDERED: BUPIVAcaine/PF 2.5mg/ml (0.25%) 10ml vial ONE (10:28)
[2019-07-05] MEDS ORDERED: LIDOcaine 0.5% (5mg/ml) 50ml vial ONE (11:09)
[2019-07-05] MEDS ORDERED: fentaNYL/PF 50MCG/1 ML 2ML syringe ONE ×2 (11:10→11:22)
[2019-07-05] MEDS ORDERED: MIDAZolam 5mg/5ml vial ONE (11:20)
[2019-07-05] MEDS ORDERED: propofol inj 20 ML IV ONE (11:39)
--- NOTE | 2019-07-05 11:45 | NUR ---
ADMITTED TO PACU FROM OR ACCOMPANIED BY ANESTHESIA. INTIAL PHYSICAL ASSESSMENT DONE AND RECORDED. REPORT RECEIVED FROM ANESTHESIA.
--- NOTE | 2019-07-05 13:00 | NUR ---
DISCHARGE CRITERIA MET, DISCHARGE INSTRUCTIONS GIVEN, DEMONSTRATES VERBAL UNDERSTANDING. DISCHARGED HOME IN GOOD CONDITION.
== END 2019-07-05 13:00 | disposition home or self-care (01) ==
LOC: PAS 08:37
PROVIDERS: ATTEND Orthopaedic Surgery Hand Surgery
DX: M20.092 Other deformity of left finger(s) (principal); M65.842 Other synovitis and tenosynovitis, left hand; Z98.51 Tubal ligation status; Z98.890 Other specified postprocedural states; Z98.84 Bariatric surgery status; Z90.49 Acquired absence of other specified parts of digestive tract; G47.33 Obstructive sleep apnea (adult) (pediatric); F43.10 Post-traumatic stress disorder, unspecified; F41.9 Anxiety disorder, unspecified; F32.9 Major depressive disorder, single episode, unspecified; E66.9 Obesity, unspecified; Z68.35 Body mass index [BMI] 35.0-35.9, adult; G25.81 Restless legs syndrome; Z91.040 Latex allergy status; Z88.5 Allergy status to narcotic agent; Z91.09 Other allergy status, other than to drugs and biological substances; Z79.899 Other long term (current) drug therapy; Z88.8 Allergy status to other drugs, medicaments and biological substances
CPT/HCPCS: 26145; 36415; 80053; 82948; 85025; J2001; J2250; J2704; J3010; J3490; A4215; A4615; A7000; J7120

== ENCOUNTER 2019-10-08 10:04 | Outpatient (CLI) | payer OTHER, MEDICAID ==
[~2019-10-08 10:04] MED LIST changes: -TRAZ-219 PO; +TRAZ-256 PO; -cefazolin/dext.iso 2gm/100ml 100 ML IV ONE; -famotidine 10mg tablet PO ONE; -ringers solution, lacted 1,000 ML IV SCH
== END 2019-10-08 23:59 | disposition home or self-care (01) ==
LOC: RAD 10:04
PROVIDERS: ATTEND Family Medicine
DX: M47.814 Spondylosis without myelopathy or radiculopathy, thoracic region (principal)
CPT/HCPCS: 72074; 72146

== ENCOUNTER 2021-02-26 13:55 | Emergency (ER) | payer MEDICAID, OTHER ==
[~2021-02-26] VITALS: Ht 170.2 cm; Wt 95.0 kg
[~2021-02-26 13:55] MED LIST changes: -CYAN500T63 PO; +CYAN500T71 PO; +SERT-433 PO; +SERT-434 PO; -SERT100T10 PO; -SERT50TA10 PO
[2021-02-26 14:36] VITALS: BP 107/67
[2021-02-26 15:05] LABS: BASOPHILS % (AUTO) 0.5 % (0-1); EOSINOPHILS # (AUTO) 0.1 X10'3 (0-0.9); HEMATOCRIT 39.7 % (35.0-45.0); HEMOGLOBIN 13.4 g/dl (12.0-16.0); LYMPHOCYTES # (AUTO) 1.4 X10'3 (1.1-4.8); LYMPHOCYTES % (AUTO) 31.1 % (21-51); MEAN CORPUSCULAR HEMOGLOBIN 31.1 PG (27.0-31.0); MEAN CORPUSCULAR HGB CONC 33.7 g/dL (33.0-36.5); MEAN CORPUSCULAR VOLUME 92.4 FL (78-98); MEAN PLATELET VOLUME 8.7 FL (7.4-10.4); MONOCYTES # (AUTO) 0.3 X10'3 (0-0.9); MONOCYTES % (AUTO) 6.8 % (2-12); NEUTROPHILS # (AUTO) 2.7 X10'3 (1.8-7.7); NEUTROPHILS % (AUTO) 59.6 % (42-75); PLATELET COUNT 189 X10'3 (140-440); RED BLOOD COUNT 4.29 X10'6 (4.20-5.60); RED CELL DISTRIBUTION WIDTH 13.3 % (11.5-14.5); WHITE BLOOD COUNT 4.6 X10'3 (4.5-11.0)
[2021-02-26 15:20] LABS: ALANINE AMINOTRANSFERASE 27 U/L (12-78); ALBUMIN 3.8 G/DL (3.4-5.0); ALBUMIN/GLOBULIN RATIO 1.1 (1.1-1.5); ALKALINE PHOSPHATASE 113 IU/L (46-116); ANION GAP 6 (8-16); ASPARTATE AMINO TRANSFERASE 19 U/L (10-37); BILIRUBIN,TOTAL 0.3 MG/DL (0.1-1.0); BLOOD UREA NITROGEN 9 MG/DL (7-18); BUN/CREATININE RATIO 11.1 (6.6-38.0); CALCIUM 8.8 MG/DL (8.5-10.1); CHLORIDE 108 MMOL/L (99-107); CREATININE 0.81 MG/DL (0.40-0.90); GLUCOSE 85 MG/DL (70-104); POTASSIUM 3.9 MMOL/L (3.5-5.1); SODIUM 143 MMOL/L (135-145); TOTAL CARBON DIOXIDE 28.7 MMOL/L (24-32); TOTAL PROTEIN 7.3 G/DL (6.4-8.2); eGFR 78 ML/MIN
== END 2021-02-26 19:37 | disposition home or self-care (01) ==
LOC: ER 13:55
DX: R55 Syncope and collapse (principal); R07.89 Other chest pain; Z53.21 Procedure and treatment not carried out due to patient leaving prior to being seen by health care provider
CPT/HCPCS: 36415; 71045; 80053; 84484; 85025; 93005; 99285

== ENCOUNTER 2021-05-15 00:13 | Emergency (ER) | payer MEDICAID ==
[~2021-05-15] VITALS: Ht 170.2 cm; Wt 97.3 kg
[2021-05-15 02:49] LABS: BASOPHILS % (AUTO) 0.5 % (0-1); EOSINOPHILS # (AUTO) 0.1 X10'3 (0-0.9); HEMATOCRIT 41.8 % (35.0-45.0); HEMOGLOBIN 14.4 g/dl (12.0-16.0); LYMPHOCYTES # (AUTO) 1.4 X10'3 (1.1-4.8); LYMPHOCYTES % (AUTO) 23.7 % (21-51); MEAN CORPUSCULAR HEMOGLOBIN 31.5 PG (27.0-31.0); MEAN CORPUSCULAR HGB CONC 34.4 g/dL (33.0-36.5); MEAN CORPUSCULAR VOLUME 91.5 FL (78-98); MEAN PLATELET VOLUME 8.9 FL (7.4-10.4); MONOCYTES # (AUTO) 0.3 X10'3 (0-0.9); MONOCYTES % (AUTO) 5.8 % (2-12); NEUTROPHILS # (AUTO) 3.9 X10'3 (1.8-7.7); PLATELET COUNT 189 X10'3 (140-440); RED BLOOD COUNT 4.57 X10'6 (4.20-5.60); RED CELL DISTRIBUTION WIDTH 13.4 % (11.5-14.5); WHITE BLOOD COUNT 5.7 X10'3 (4.5-11.0)
[2021-05-15 02:54] LABS: D-DIMER 0.29 MG/L FEU (0-0.50)
[2021-05-15 03:01] LABS: ALBUMIN 3.8 G/DL (3.4-5.0); ANION GAP 8 (8-16); BLOOD UREA NITROGEN 17 MG/DL (7-18); BUN/CREATININE RATIO 16.3 (6.6-38.0); CHLORIDE 109 MMOL/L (99-107); CREATININE 1.04 MG/DL (0.40-0.90); GLUCOSE 94 MG/DL (70-104); POTASSIUM 3.8 MMOL/L (3.5-5.1); SODIUM 146 MMOL/L (135-145); TOTAL CARBON DIOXIDE 29.3 MMOL/L (24-32); TROPONIN I < 0.04 NG/ML (0.0-0.05); eGFR 58 ML/MIN
[2021-05-15 03:18] VITALS: BP 101/75
== END 2021-05-15 03:19 | disposition home or self-care (01) ==
LOC: ER 00:14
DX: R00.2 Palpitations (principal); R53.83 Other fatigue; R42 Dizziness and giddiness; R53.1 Weakness; G89.29 Other chronic pain; Z87.81 Personal history of (healed) traumatic fracture; Z98.891 History of uterine scar from previous surgery; Z98.84 Bariatric surgery status; Z98.51 Tubal ligation status; Z79.899 Other long term (current) drug therapy; Z91.040 Latex allergy status; Z91.011 Allergy to milk products; Z88.8 Allergy status to other drugs, medicaments and biological substances
CPT/HCPCS: 36415; 80048; 84484; 85025; 85379; 93005; 99284

== ENCOUNTER 2021-10-12 15:50 | Emergency (ER) | payer MEDICAID ==
[~2021-10-12] VITALS: Ht 170.2 cm; Wt 95.5 kg
[2021-10-12] MEDS ORDERED: LIDOcaine 5% patch TP STA (18:30)
[2021-10-12 19:05] VITALS: BP 142/88
== END 2021-10-12 19:08 | disposition home or self-care (01) ==
LOC: ER 15:51
DX: T50.905A Adverse effect of unspecified drugs, medicaments and biological substances, initial encounter (principal); M25.512 Pain in left shoulder; G89.29 Other chronic pain; F31.9 Bipolar disorder, unspecified; Z79.899 Other long term (current) drug therapy; Z91.040 Latex allergy status; Z88.8 Allergy status to other drugs, medicaments and biological substances; Z88.5 Allergy status to narcotic agent; Y92.89 Other specified places as the place of occurrence of the external cause
CPT/HCPCS: 73030; 99283

== ENCOUNTER 2022-12-13 12:52 | Emergency (ER) | payer MEDICAID ==
[~2022-12-13] VITALS: Ht 170.2 cm; Wt 115.0 kg
[2022-12-13] MEDS ORDERED: normal saline 1000ML IV soln IVB ONE (14:05)
[2022-12-13] MEDS ORDERED: diphenhydrAMINE 50 mg/ml inj IV ONE (14:05)
[2022-12-13] MEDS ORDERED: proCHLORperazine 10 MG/2 ml inj IV ONE (14:05)
[2022-12-13 15:28] LABS: BASOPHILS % (AUTO) 0.7 % (0-1); EOSINOPHILS # (AUTO) 0.1 X10'3 (0-0.9); HEMATOCRIT 42.5 % (35.0-45.0); HEMOGLOBIN 14.3 g/dl (12.0-16.0); LYMPHOCYTES # (AUTO) 2.1 X10'3 (1.1-4.8); LYMPHOCYTES % (AUTO) 30.8 % (21-51); MEAN CORPUSCULAR HEMOGLOBIN 31.1 PG (27.0-31.0); MEAN CORPUSCULAR HGB CONC 33.5 g/dL (33.0-36.5); MEAN CORPUSCULAR VOLUME 92.8 FL (78-98); MEAN PLATELET VOLUME 8.9 FL (7.4-10.4); MONOCYTES # (AUTO) 0.5 X10'3 (0-0.9); MONOCYTES % (AUTO) 7.5 % (2-12); PLATELET COUNT 181 X10'3 (140-440); RED BLOOD COUNT 4.59 X10'6 (4.20-5.60); RED CELL DISTRIBUTION WIDTH 13.7 % (11.5-14.5); WHITE BLOOD COUNT 6.8 X10'3 (4.5-11.0)
[2022-12-13 15:45] LABS: ALANINE AMINOTRANSFERASE 16 U/L (12-78); ALBUMIN 4.2 G/DL (3.4-5.0); ALBUMIN/GLOBULIN RATIO 1.2 (1.1-1.5); ALKALINE PHOSPHATASE 110 IU/L (46-116); ANION GAP 7 (8-16); ASPARTATE AMINO TRANSFERASE 15 U/L (10-37); BILIRUBIN,TOTAL 0.6 MG/DL (0.1-1.0); BLOOD UREA NITROGEN 16 MG/DL (7-18); BUN/CREATININE RATIO 16.3 (10.0-20.0); CALCIUM 9.6 MG/DL (8.5-10.1); CHLORIDE 103 MMOL/L (99-107); CREATININE 0.98 MG/DL (0.40-0.90); GLUCOSE 80 MG/DL (70-104); LIPASE 56 U/L (73-393); POTASSIUM 3.5 MMOL/L (3.5-5.1); SODIUM 139 MMOL/L (135-145); TOTAL CARBON DIOXIDE 28.6 MMOL/L (24-32); TOTAL PROTEIN 7.6 G/DL (6.4-8.2); eGFR 62 ML/MIN
[2022-12-13 17:15] LABS: HCG SERUM QL NEGATIVE
[2022-12-13] MEDS ORDERED: iohexol 300mg/ml 100ml inj. ONE (18:29)
--- NOTE | 2022-12-13 20:05 | NUR ---
pt drank approx 10 oz water & pack of saltine crackers per order for PO challenge. pt tolerated well, however stated that she "can't drink or eat much" r/t hx of gastric sleeve from 2017.
[2022-12-13 20:15] VITALS: BP 136/94
[2022-12-13] MEDS ORDERED: mag hydrox/Alum hydrox/simeth 30ml oral suspension PO ONE (20:55)
[2022-12-13 21:21] LABS: CLARITY,URINE SLIGHTLY CLOUDY (Clear); COLOR,URINE YELLOW (Yellow); GLUCOSE, URINE NEGATIVE (Neg); KETONES,URINE >=80 mg/dl (Neg); LEUKOCYTE ESTERASE ,URINE NEGATIVE (Neg); NITRITES, URINE NEGATIVE (Neg); OCCULT BLOOD,URINE NEGATIVE (Neg); PROTEIN,URINE NEGATIVE (Neg); UROBILINOGEN,URINE 0.2 E.U/dL (0.2-1.0)
[2022-12-13] MEDS ORDERED: PROC10TA10 PO (21:39)
[2022-12-13 21:40] LABS: RBC,URINE NONE SEEN /HPF (0-2); UA COLLECTION TYPE CLN CATCH MIDSTREAM; WBC,URINE 0-4 /HPF (0-4)
[2022-12-13 21:41] LABS: BACTERIA,URINE FEW /HPF (Neg); MUCUS STRANDS FEW /LPF (Neg); SQUAMOUS EPITHELIAL CELL,UR MANY /LPF (FEW)
== END 2022-12-13 21:50 | disposition home or self-care (01) ==
LOC: ER 12:53
DX: R11.0 Nausea (principal); R10.33 Periumbilical pain; R10.30 Lower abdominal pain, unspecified; G89.29 Other chronic pain; G43.909 Migraine, unspecified, not intractable, without status migrainosus; Z87.81 Personal history of (healed) traumatic fracture; Z90.49 Acquired absence of other specified parts of digestive tract; Z98.891 History of uterine scar from previous surgery; Z98.84 Bariatric surgery status; Z98.51 Tubal ligation status; Z79.899 Other long term (current) drug therapy; Z88.8 Allergy status to other drugs, medicaments and biological substances; Z91.040 Latex allergy status; Z91.048 Other nonmedicinal substance allergy status
CPT/HCPCS: 36415; 71046; 74177; 80053; 81001; 83690; 84703; 85025; 93005; 96361; 96374; 96375; 99285; J0780; J1200; J3490; J7030; Q9967

== ENCOUNTER 2023-06-11 13:15 | Emergency (ER) | payer MEDICAID ==
[~2023-06-11] VITALS: Ht 170.2 cm; Wt 113.0 kg
[~2023-06-11 13:15] MED LIST changes: +PROC10TA97 PO
[2023-06-11 13:57] LABS: BASOPHILS % (AUTO) 0.3 % (0-1); EOSINOPHILS % (AUTO) 0.4 % (0-6); HEMATOCRIT 44.2 % (35.0-45.0); HEMOGLOBIN 14.7 g/dl (12.0-16.0); LYMPHOCYTES % (AUTO) 8.5 % (21-51); MEAN CORPUSCULAR HEMOGLOBIN 31.3 PG (27.0-31.0); MEAN CORPUSCULAR HGB CONC 33.2 g/dL (33.0-36.5); MEAN CORPUSCULAR VOLUME 94.3 FL (78-98); MONOCYTES # (AUTO) 0.7 X10'3 (0-0.9); MONOCYTES % (AUTO) 5.8 % (2-12); NEUTROPHILS # (AUTO) 9.7 X10'3 (1.8-7.7); PLATELET COUNT 223 X10'3 (140-440); RED BLOOD COUNT 4.68 X10'6 (4.20-5.60); RED CELL DISTRIBUTION WIDTH 14.7 % (11.5-14.5); WHITE BLOOD COUNT 11.5 X10'3 (4.5-11.0)
[2023-06-11 14:16] LABS: ALANINE AMINOTRANSFERASE 33 U/L (12-78); ALBUMIN 4.1 G/DL (3.4-5.0); ALBUMIN/GLOBULIN RATIO 1.1 (1.1-1.5); ALKALINE PHOSPHATASE 120 IU/L (46-116); ANION GAP 9 (8-16); ASPARTATE AMINO TRANSFERASE 26 U/L (10-37); BILIRUBIN,TOTAL 0.4 MG/DL (0.1-1.0); BLOOD UREA NITROGEN 11 MG/DL (7-18); BUN/CREATININE RATIO 11.7 (10.0-20.0); CALCIUM 9.6 MG/DL (8.5-10.1); CHLORIDE 105 MMOL/L (99-107); CREATININE 0.94 MG/DL (0.40-0.90); GLUCOSE 113 MG/DL (70-104); LIPASE 22 U/L (16-77); POTASSIUM 3.7 MMOL/L (3.5-5.1); SODIUM 139 MMOL/L (135-145); TOTAL CARBON DIOXIDE 25.1 MMOL/L (24-32); TOTAL PROTEIN 7.8 G/DL (6.4-8.2); eCRCL 74 ML/MIN; eGFR 65 ML/MIN
[2023-06-11] MEDS ORDERED: iohexol 350MG/ML 100ml bottle IV ONE (16:02)
[2023-06-11] MEDS ORDERED: ONDA4TAB12 PO (18:00)
[2023-06-11 18:27] VITALS: BP 113/74; PULSE 75; RESP 12; TEMP 98.5; O2SAT 96
== END 2023-06-11 18:28 | disposition home or self-care (01) ==
LOC: ER 13:15
DX: R11.2 Nausea with vomiting, unspecified (principal); R07.9 Chest pain, unspecified
CPT/HCPCS: 36415; 71045; 71275; 74174; 80053; 83690; 85025; 99285; J3490; Q9967

== ENCOUNTER 2024-07-01 14:57 | Emergency (ER) | payer MEDICAID ==
[~2024-07-01] VITALS: Ht 170.2 cm; Wt 90.0 kg
[~2024-07-01 14:57] MED LIST changes: +ONDA-243 PO
[2024-07-01] MEDS: morphine 4 MG/ML inj SYRINge IV ONE (15:48)
[2024-07-01] MEDS: ondansetron/PF 4mg/2ml inj IV ONE (15:50)
[2024-07-01] MEDS ORDERED: HYDR-3965 PO (17:02)
[2024-07-01] MEDS ORDERED: IBUP-862 PO (17:02)
[2024-07-01] MEDS: ketorolac trometh 15mg/ml vial 15 MG/ML ML IV ONE (17:07)
[2024-07-01 17:25] VITALS: BP 118/89; PULSE 88; RESP 18; TEMP 98; O2SAT 99
== END 2024-07-01 17:30 | disposition home or self-care (01) ==
LOC: ER 14:58
DX: S70.02XA Contusion of left hip, initial encounter (principal); G89.29 Other chronic pain; F41.9 Anxiety disorder, unspecified; F32.A Depression, unspecified; Z60.2 Problems related to living alone; Z88.5 Allergy status to narcotic agent; Z91.040 Latex allergy status; Z88.8 Allergy status to other drugs, medicaments and biological substances; Z91.018 Allergy to other foods; Z91.048 Other nonmedicinal substance allergy status; Z79.899 Other long term (current) drug therapy; Z98.51 Tubal ligation status; Z90.49 Acquired absence of other specified parts of digestive tract; Z98.890 Other specified postprocedural states; W01.0XXA Fall on same level from slipping, tripping and stumbling without subsequent striking against object, initial encounter; Y93.89 Activity, other specified; Y92.89 Other specified places as the place of occurrence of the external cause; Y99.8 Other external cause status
CPT/HCPCS: 71045; 73502; 96374; 96375; 99284; J1885; J2270; J2405; L0172

== ENCOUNTER 2025-06-28 05:42 | Day surgery (SDC) | payer MEDICAID ==
[~2025-06-28] VITALS: Ht 170.2 cm; Wt 67.1 kg
[2025-06-28] VITALS (7 sets, daily range): BP systolic 92–104; BP diastolic 57–64; PULSE 60–70; RESP 12–16; TEMP 97.6; O2SAT 98–100
[~2025-06-28 05:42] MED LIST changes: +CARI3CAP PO; -CYAN500T71 PO; -ESTR1PAT32 SQ; +LEVO75TA7 PO; +LISD30TA PO; -LORA-269 PO; +OMEP40CA21 PO; -ONDA-243 PO; -PROC10TA97 PO; -SERT-433 PO; -SERT-434 PO; +TEST200V33 IM; -TRAZ-256 PO; -[UNRECOGNIZED DRUG - CODE] PO; +ringers solution, lacted 1,000 ML IV SCH; +simethicone 40mg/0.6ml oral drops 15ml PO ONE
[2025-06-28] MEDS ORDERED: fentaNYL/PF 50MCG/1 ML 2ML syringe ONE (07:39)
[2025-06-28] MEDS ORDERED: midazolam 1 mg/ML 2ml injection ONE (07:39)
[2025-06-28] MEDS ORDERED: propofol inj 20 ML IV ONE (07:40)
[2025-06-28] MEDS ORDERED: LIDOcaine 1%/PF 5ML 10 MG/ML VIAL ONE (07:41)
--- NOTE | 2025-06-29 18:11 | PATHOLOGY REPORT ---
[facility] [address] [place] [address] SURGICAL PATHOLOGY REPORT CaseNumber: [id number] Surgeon:Alexis Camacho P.A.-C CLINICAL INFORMATION CLINICAL INFORMATION: Not provided. DIAGNOSIS DIAGNOSIS: COLON, SIGMOID; BIOPSY - TUBULAR ADENOMA WITHOUT HIGH GRADE DYSPLASIA OR MALIGNANCY. MICROSCOPIC DESCRIPTION MICROSCOPIC DESCRIPTION: A single slide of the sigmoid colon biopsy is reviewed. Present is a tubular adenoma. The branched and forked glands are lined by tall, hyperchromatic cells whose nuclei overlap. There is no high grade dysplasia/carcinoma in situ. (st) GROSS DESCRIPTION GROSS DESCRIPTION: Received in a container of formalin labeled with the patient's name, number, and "sigmoid polyp BX" is a 1.1 x 0.6 x 0.3 cm polypoid piece of duncan tissue. The specimen is bisected. The specimen is entirely submitted as A1. The time at which the specimen was removed was 826. The time at which the specimen was placed in formalin was 827. Electronically signed by: Carol Millan M.D. 06/29/2025 5:36:00 PM
== END 2025-06-28 09:24 | disposition home or self-care (01) ==
LOC: PAS 05:42
PROVIDERS: ATTEND Internal Medicine Gastroenterology
DX: Z12.11 Encounter for screening for malignant neoplasm of colon (principal); D12.5 Benign neoplasm of sigmoid colon; K63.5 Polyp of colon; K21.9 Gastro-esophageal reflux disease without esophagitis; F41.9 Anxiety disorder, unspecified; F32.A Depression, unspecified; F43.10 Post-traumatic stress disorder, unspecified; M79.7 Fibromyalgia; Z87.891 Personal history of nicotine dependence; Z79.890 Hormone replacement therapy; Z79.899 Other long term (current) drug therapy; Z90.49 Acquired absence of other specified parts of digestive tract; Z98.51 Tubal ligation status; Z98.84 Bariatric surgery status; Z98.891 History of uterine scar from previous surgery; Z98.890 Other specified postprocedural states; Z88.6 Allergy status to analgesic agent; Z91.040 Latex allergy status; Z88.8 Allergy status to other drugs, medicaments and biological substances; Z80.0 Family history of malignant neoplasm of digestive organs
CPT/HCPCS: 45385; J2250; J2704; J3010; J3490; J7120; Z7512; A4615